=== PATIENT | male | born 1980 | race African-American/Black ===

== ENCOUNTER 2016-11-16 02:18 | Emergency (ER) | payer OTHER ==
[~2016-11-16] VITALS: Ht 182.8 cm; Wt 65.8 kg
[~2016-11-16 02:18] MED LIST: CLINDAMYCIN HC300 MG PO; NKHM; VOLTAREN50 M1 PO
[2016-11-16] MEDS ORDERED: PERCOCET 325 MG1 TA5 PO (02:25)
[2016-11-16] MEDS ORDERED: CLEOCIN150 MG PO (02:25)
[2016-11-16] MEDS ORDERED: ERY TABS333 MG PO (02:39)
[2016-11-16] MEDS ORDERED: PERCOCET 325 MG1 TA2 PO (02:39)
== END 2016-11-16 03:31 | disposition home or self-care (01) ==
LOC: ED 02:18
DX: K04.7 Periapical abscess without sinus (principal); F17.200 Nicotine dependence, unspecified, uncomplicated; Z88.0 Allergy status to penicillin; Z88.1 Allergy status to other antibiotic agents

== ENCOUNTER 2020-01-06 04:55 | Emergency (ER) | payer OTHER ==
[~2020-01-06] VITALS: Wt 65.8 kg
[~2020-01-06 04:55] MED LIST changes: +CLEOCIN150 MG PO; +ERY TABS333 MG PO; +PERCOCET 325 MG1 TA2 PO; +PERCOCET 325 MG1 TA5 PO
[2020-01-06] MEDS ORDERED: LISINOPRIL10 M1 PO (05:28)
[2020-01-06] MEDS ORDERED: PREDNISONE20 M1 PO (05:28)
[2020-01-06 06:01] LABS: BASO # 0.1 10*3/uL (0.0-0.1); BASO % 0.6 % (0.0-1.0); EOS # 0.4 10*3/uL (0.0-0.4); EOS % 3.1 % (1.0-4.0); HEMATOCRIT 48.6 % (42.0-52.0); LYMPH # 3.8 10*3/uL (1.3-4.4); LYMPH % 30.3 % (27.0-41.0); MEAN CELL VOLUME 87.6 fl (80.0-94.0); MEAN CORPUSCULAR HGB 30.1 pg (27.0-31.0); MEAN CORPUSCULAR HGB CONC 34.4 g/dl (33.0-37.0); MEAN PLATELET VOLUME 9.7 fl (9.6-12.3); MONO # 0.9 10*3/uL (0.1-1.0); NEUT # 7.3 10*3/uL (2.3-7.9); NEUT % 58.4 % (47.0-73.0); PLATELET COUNT AUTOMATED 263 10*3/uL (130-400); RED BLOOD COUNT 5.55 10*6/uL (4.50-5.90); RED CELL DISTRI WIDTH 12.3 % (0-14.5); WHITE BLOOD COUNT 12.6 10*3/uL (4.8-10.8)
[2020-01-06 06:04] LABS: CHLORIDE 108 mmol/L (98-107); CREATININE 1.13 mg/dL (0.70-1.30); POTASSIUM 3.4 mmol/L (3.5-5.1); SODIUM 141 mmol/L (136-145)
[2020-01-06 06:12] LABS: BUN 7 mg/dl (7-24)
[2020-01-06] MEDS ORDERED: POTASSIUM CHLO10 ME5 PO (06:17)
== END 2020-01-06 06:36 | disposition home or self-care (01) ==
LOC: ED 04:55
PROVIDERS: Emergency Medicine
DX: L23.7 Allergic contact dermatitis due to plants, except food (principal); I10 Essential (primary) hypertension; F17.200 Nicotine dependence, unspecified, uncomplicated; Z88.0 Allergy status to penicillin; Z88.1 Allergy status to other antibiotic agents